=== PATIENT | male | born 1950 | race Caucasian/White ===

== ENCOUNTER 2022-09-23 19:37 | Inpatient (IN) | payer BC, MEDICARE, OTHER ==
[~2022-09-23] VITALS: Ht 177.8 cm; Wt 78.0 kg
--- NOTE | 2022-09-23 19:44 | NUR ---
PATRICIA FROM [facility], 184 SEIZURE 15SECS, ATIVAN 2MG GIVEN. PLACED IN BED, NON VERBAL, UNLABORED BREATHING SATURATING AT 95% WITH O2 4LIT VIA TRACH TUBE.
[2022-09-23] MEDS ORDERED: PIPERACILLIN /TAZOBACTAM 3.375 G VIAL IV ONE (20:18)
--- NOTE | 2022-09-23 20:25 | NUR ---
DISPUTE COORDINATOR AT BEDSIDE
[2022-09-23] MEDS ORDERED: IV NS 0.9% 1,000 ML BAG IV ONE ×2 (20:30→22:30)
[2022-09-23] MEDS ORDERED: PIPERACILLIN /TAZOBACTAM 3.375 G in IV D5W 50 ML IV ONE (20:30)
[2022-09-23] MEDS ORDERED: ACETAMINOPHEN 650 MG/SUPP.RECT RC ONE ×2 (20:30→20:42)
--- NOTE | 2022-09-23 20:33 | NUR ---
URINE SAMPLE SENT TO LAB
[2022-09-23 21:01] LABS: BASOPHILS % (AUTO) 0.1 % (0.0-2.0); HEMATOCRIT 32 % (39-51); HEMOGLOBIN 10.2 g/dL (13.5-17.5); LYMPHOCYTES # (AUTO) 0.3 K/uL (0.8-4.8); LYMPHOCYTES % (AUTO) 1.7 % (20.0-44.0); MEAN CORPUSCULAR HGB CONC 32 g/dl (31.0-36.0); MEAN CORPUSCULAR VOLUME 95 fL (80-96); MONOCYTES # (AUTO) 0.8 K/uL (0.1-1.30); MONOCYTES % (AUTO) 4.8 % (2.0-12.0); NEUTROPHILS # (AUTO) 15.2 K/uL (1.8-8.9); NEUTROPHILS % (AUTO) 93.4 % (43.0-81.0); PLATELET COUNT (AUTO) 218 K/uL (150-450); RED BLOOD CELL COUNT(AUTO) 3.33 MIL/uL (4.5-6.0); WHITE BLOOD COUNT (AUTO) 16.2 K/uL (4.3-11.0)
[2022-09-23 21:20] LABS: CARBON DIOXIDE 24 mmol/L (21-32); CHLORIDE 98 mmol/L (98-107); CREATININE 1.6 mg/dL (0.6-1.3); GLUCOSE 144 mg/dL (74-106); POTASSIUM 3.7 mmol/L (3.5-5.1); SODIUM SERUM 135 mmol/L (136-145); UREA NITROGEN, BLOOD 39 mg/dL (7-18)
[2022-09-23 21:24] LABS: ABG BASE EXCESS -0.3 mmol/L; ABG PCO2 32.4 mmHg (35.0-45.0); ABG PH 7.467 (7.350-7.450); ABG PO2 80.4 mmHg (75.0-100.0); COHb 0.3 % (0.5-1.5); MetHb 0.7 % (0.0-1.5); O2Hb 93.7 % (94.0-97.0); SITE, ABG Right Radial; VENT MODE, BG 4L Trach Mask
[2022-09-23 21:25] LABS: BILIRUBIN,URINE NEGATIVE (NEGATIVE); COLOR,URINE YELLOW (YELLOW); LEUKOCYTE ESTERASE ,URINE NEGATIVE (NEGATIVE); NITRITE, URINE POSITIVE (NEGATIVE); PH,URINE 5.5 (5.0-8.0); PROTEIN,URINE NEGATIVE (NEGATIVE); UGLUCOSE NEGATIVE (NEGATIVE); UROBILINOGEN,URINE 0.2 EU/dL (0.2)
[2022-09-23 21:34] LABS: ALANINE AMINOTRANSFERASE 22 U/L (12-78); ALBUMIN 2.9 g/dL (3.4-5.0); ALKALINE PHOSPHATASE 70 U/L (46-116); ASPARTATE AMINOTRANSFERASE 14 U/L (15-37); BILIRUBIN,DIRECT 0.1 mg/dL (0.0-0.2); BILIRUBIN,TOTAL 0.5 mg/dL (0.2-1.0); TOTAL PROTEIN, SERUM 6.5 g/dL (6.4-8.2)
[2022-09-23 21:48] LABS: BACTERIA,URINE 3+ /HPF (None Seen); RBC,URINE 0-2 /HPF (0-2)
[2022-09-23 21:49] LABS: SQUAMOUS EPITHELIAL CELL,UR 0-2 /HPF (None Seen)
--- NOTE | 2022-09-23 21:57 | NUR ---
COVID Swab collected, sent to lab
--- NOTE | 2022-09-23 21:57 | NUR ---
MRSA Swab collected, sent to lab
--- NOTE | 2022-09-23 22:18 | NUR ---
BED 114-1
[2022-09-23] MEDS ORDERED: Z GUARD REMEDY 4 OZ OINT TP PRN (22:30)
[2022-09-23] MEDS ORDERED: MAGNESIUM HYDROXIDE 30 ML UDC PO PRN (22:30)
[2022-09-23] MEDS ORDERED: ACETAMINOPHEN 325 MG TABLET PO PRN (22:30)
[2022-09-23] MEDS ORDERED: ONDANSETRON HCL/PF 4 MG/2 ML VIAL IVP PRN (22:30)
[2022-09-23] MEDS ORDERED: MAG HYDROX/AL HYDROX/SIMETH 30 ML UDC PO PRN (22:30)
[2022-09-23] MEDS ORDERED: ZOLPIDEM TARTRATE 5 MG TABLET PO PRN (22:30)
[2022-09-23] MEDS ORDERED: LORAZEPAM INJ 2 MG/ML VIAL IV PRN (22:30)
--- NOTE | 2022-09-23 22:34 | NUR ---
Lamberto magallanes in [place] - 09/23/22 at 2251 by CAROLYNE REPORT GIVEN TO JORI QUINTANA ROOM 114-1 FOR KAITLYNN
--- NOTE | 2022-09-23 22:34 | NUR ---
REPORT GIVEN TO ANNEMARIE QUINTANA ROOM 114-1 FOR KAITLYNN
--- NOTE | 2022-09-23 22:50 | NUR ---
PATIENT TRANSFERED AND ADMITTED PER ACLS PROTOCOL
--- NOTE | 2022-09-23 23:00 | NUR ---
RN ADMITTING NOTE REPORT RECEIVED FROM ANH QUINTANA, PATIENT FROM ER VIA GURNEY ACCOMPANIED BY 2 ER STAFF, AAO X 0, AROUSABLE, RESPONDS TO TACTILE STIMULI, ON TRACH TO T-PIECE AT 4LPM, PLACED ON COOL AEROSOL AT 5LPM AT 28% FIO2 BY RT PER ORDERS, SATURATION AT 96%, ST ON THE MONITOR, HR IS 103. IV LINE AT L FOOT 20G PATENT AND FLUSHING WELL, STARTED IV FLUID OF NS AT 150 ML/HR PER ORDERS. HOLLOWAY CATHETER DRAINING TO A CLEAR, YELLOW OUTPUT. GTUBE IN PLACE, POSITIVE PLACEMENT NOTED. SAFETY MEASURES IMPLEMENTED, BED IS LOCKED AND AT LOWEST POSITION, HOB ELEVATED. WILL CONT TO MONITOR AND CARRY OUT MD ORDERS.
--- NOTE | 2022-09-23 23:01 | NUR ---
RN NOTE COMPREHENSIVE ASSESSMENT DONE, NO SKIN ISSUES NOTED.
--- NOTE | 2022-09-23 23:14 | NUR ---
PLACED PT ON CA 28% 5L SUCTIONED SMALL AMOUNT OF YELLOW THICK SECRETIONS.
[2022-09-24] VITALS: BP 91/47
[2022-09-24] MEDS ORDERED: LEVETIRACETAM (500MG) 1,000 MG in IV NS 0.9% 100 ML IV ONE (00:23)
[2022-09-24] MEDS ORDERED: VANCOMYCIN 1 GM in IV D5W 250ml IV ONE (00:30)
[2022-09-24] MEDS ORDERED: LEVETIRACETAM (500MG) 500 MG/5 ML VIAL IV ONE (00:45)
[2022-09-24] MEDS ORDERED: VANCOMYCIN 1 GM VIAL ONE (00:45)
[2022-09-24] MEDS: IV NS 0.9% 1,000 ML IV PRN ×3 (00:53→16:55)
[2022-09-24] MEDS ORDERED: NEPRO 1,000 ML BOTTLE GT PRN (02:30)
[2022-09-24] MEDS ORDERED: HYDR25TA4 GT (03:25)
[2022-09-24] MEDS ORDERED: AMLO-212 GT (03:25)
[2022-09-24] MEDS ORDERED: ATOR20TA GT (03:25)
[2022-09-24] MEDS ORDERED: APIX5TAB GT (03:25)
[2022-09-24] MEDS ORDERED: ACET-2605 GT (03:25)
[2022-09-24] MEDS ORDERED: DEXT15DR6 EACHEYE (03:25)
[2022-09-24] MEDS ORDERED: ASPI-1169 GT (03:25)
[2022-09-24] MEDS ORDERED: MAGN400O21 GT (03:25)
[2022-09-24] MEDS ORDERED: ACET325T53 GT (03:25)
[2022-09-24] MEDS ORDERED: FAMO20TA8 GT (03:25)
[2022-09-24] MEDS ORDERED: HYDR100T27 GT (03:25)
[2022-09-24] MEDS ORDERED: FINA5TAB11 GT (03:25)
[2022-09-24] MEDS ORDERED: TERA2CAP4 GT (03:25)
[2022-09-24] MEDS ORDERED: AMIO200T5 GT (03:25)
[2022-09-24] MEDS ORDERED: ACET325C7 GT (03:25)
[2022-09-24] MEDS ORDERED: CLON0.1T GT (03:25)
[2022-09-24] MEDS ORDERED: CHLO473M3 MM (03:25)
[2022-09-24] MEDS ORDERED: HYDR-4303 GT (03:25)
[2022-09-24] MEDS ORDERED: IPRA4AER IH ×2 (03:25→10:41)
[2022-09-24] MEDS ORDERED: CARV3.122 GT (03:25)
[2022-09-24] MEDS ORDERED: BACL10TA GT (03:25)
[2022-09-24] MEDS ORDERED: SENN-261 GT (03:25)
[2022-09-24 04:00] VITALS: BP 93/40
[2022-09-24] MEDS ORDERED: PIPERACILLIN /TAZOBACTAM 3.375 G VIAL IV ONE (04:12)
[2022-09-24] MEDS ORDERED: ZOSYN IVPB 3.375 G in IV D5W 50ml IV ONE (05:00)
[2022-09-24] MEDS ORDERED: JEVITY 1.2 CAL 1,000 ML BOTTLE GT PRN (05:00)
[2022-09-24 07:21] LABS: BASOPHILS % (AUTO) 0.2 % (0.0-2.0); HEMATOCRIT 27 % (39-51); HEMOGLOBIN 8.8 g/dL (13.5-17.5); LYMPHOCYTES # (AUTO) 0.4 K/uL (0.8-4.8); LYMPHOCYTES % (AUTO) 3.5 % (20.0-44.0); MEAN CORPUSCULAR HGB CONC 33 g/dl (31.0-36.0); MEAN CORPUSCULAR VOLUME 95 fL (80-96); MONOCYTES # (AUTO) 0.7 K/uL (0.1-1.30); MONOCYTES % (AUTO) 5.4 % (2.0-12.0); NEUTROPHILS # (AUTO) 11.6 K/uL (1.8-8.9); NEUTROPHILS % (AUTO) 90.9 % (43.0-81.0); PLATELET COUNT (AUTO) 177 K/uL (150-450); RED BLOOD CELL COUNT(AUTO) 2.84 MIL/uL (4.5-6.0); WHITE BLOOD COUNT (AUTO) 12.8 K/uL (4.3-11.0)
--- NOTE | 2022-09-24 07:22 | NUR ---
CLIENT DIRECTOR OPENING NOTES PATIENT RECEIVED IN BED ASLEEP. ALERT AND ORIENTED X0 BUT AROUSABLE TO TACTILE STIMULI. ON TRACH TO T-PIECCE AND PLACED ON COOL AEROSOL AT 5LPM AT 28%. ON TELE MONITOR. IV ACCESS AT L FOOT 20G PATENT AND FLUSHING WELL AND L HAND 20G RUNNING NS 150 ML/HR. HOLLOWAY CATHETER DRAINING TO A CLEAR, YELLOW OUTPUT. GTUBE IN PLACE WITH NO RESIDUAL. SAFETY MEASURES IMPLEMENTED WITH BED IN LOWEST AND LOCKED POSITION, HOB ELEVATED, SIDE RAILS UP X 3. WILL CONTINUE TO MONITOR.
[2022-09-24 07:38] LABS: CALCIUM, SERUM 8.3 mg/dL (8.5-10.1); CREATININE 1.3 mg/dL (0.6-1.3); MAGNESIUM 1.8 mg/dL (1.8-2.4); PHOSPHORUS 3.3 mg/dL (2.5-4.9); POTASSIUM 3.1 mmol/L (3.5-5.1)
[2022-09-24] MEDS ORDERED: ZOLPIDEM TARTRATE 5 MG TABLET GT PRN (07:52)
[2022-09-24] MEDS ORDERED: MAGNESIUM HYDROXIDE 30 ML UDC GT PRN (07:52)
[2022-09-24 08:00] VITALS: BP 103/43
[2022-09-24] MEDS: LEVETIRACETAM (500MG) 500 MG in IV NS 0.9% 100 ML IV SCH ×2 (08:25→20:30)
[2022-09-24] MEDS: APIXABAN 2.5 MG TABLET PO SCH ×2 (08:26→20:31)
--- NOTE | 2022-09-24 09:06 | NUR ---
GASTRIC RESIDUAL OF 60 CC. WILL CONTINUE FEEDING AT 20 ML/HR.
--- NOTE | 2022-09-24 09:14 | NUR ---
TROPONIN OF [address]. NOTIFIED DR CAICEDO.
[2022-09-24] MEDS: POTASSIUM CHLORIDE 20 MEQ POWDER PACKET PO ONE ×2 (10:27→11:08)
[2022-09-24] MEDS ORDERED: BISA10SU11 RC (10:41)
[2022-09-24] MEDS ORDERED: POLY15DR40 EACHEYE (10:41)
[2022-09-24] MEDS ORDERED: INSU100V28 SQ (10:41)
[2022-09-24] MEDS ORDERED: NUT.237L67 GT (10:41)
[2022-09-24] MEDS ORDERED: VIT1TABL44 GT (10:41)
[2022-09-24] MEDS ORDERED: NA P133E RC (10:41)
[2022-09-24] MEDS ORDERED: FERR300L GT (10:41)
[2022-09-24] MEDS: PIPERACILLIN /TAZOBACTAM 3.375 G in IV D5W 50 ML IV SCH ×2 (11:08→17:04)
[2022-09-24 12:00] VITALS: BP 116/62
[2022-09-24] MEDS: VANCOMYCIN HCL 0.75 GM in IV D5W 250 ML IV SCH (12:01)
--- NOTE | 2022-09-24 13:00 | NUR ---
RESIDUAL OF 20CC. JEVITY INCREASED TO 30 ML/HR. Addendum: 09/24/22 at 1715 by ARSLAN HARTMANN RN PLEASE DISREGARD
[2022-09-24] MEDS ORDERED: DEXTROSE 50%-WATER 50 ML DISP.SYRIN IV PRN (14:30)
--- NOTE | 2022-09-24 15:00 | NUR ---
RESIDUAL OF 20CC. JEVITY INCREASED TO 30 ML/HR.
[2022-09-24 16:00] VITALS: BP 99/49
[2022-09-24] MEDS: BLOOD SUGAR DIAGNOSTIC 1 EACH STRIP IN SCH (17:12)
[2022-09-24] MEDS: INSULIN REGULAR, HUMAN 100 UNIT/ML 3 ML VIAL SQ PRN (17:13)
--- NOTE | 2022-09-24 18:46 | NUR ---
PHYSICIAN INTENSIVIST CLOSING NOTES PATIENT IN BED SLEEPING. AROUSABLE TO VERBAL STIMULI. ALERT AND ORIENTED X2-3. ON TRACH TO T-PIECCE AND PLACED ON COOL AEROSOL AT 5LPM AT 28%. ON TELE MONITOR READING SINUS RHYTHM 60 WITH BUNDLE BRANCH BLOCK AND 1ST DEGREE AV BLOCK. IV ACCESS AT L FOOT 20G PATENT AND FLUSHING WELL WELL ON L HAND 20G RUNNING NS 150 ML/HR. HOLLOWAY CATHETER DRAINING CLEAR, YELLOW URINE. GTUBE IN PLACE WITH NO RESIDUAL. SAFETY MEASURES IMPLEMENTED WITH BED IN LOWEST AND LOCKED POSITION, HOB ELEVATED, SIDE RAILS UP X 3. WILL CONTINUE TO MONITOR.
--- NOTE | 2022-09-24 18:53 | NUR ---
SENIOR SHIPPING CLERK CLOSING NOTES PATIENT IN BED SLEEPING. AROUSABLE TO VERBAL STIMULI. ALERT AND ORIENTED X2-3. ON TRACH TO T-PIECCE AND PLACED ON COOL AEROSOL AT 5LPM AT 28%. ON TELE MONITOR READING SINUS RHYTHM 60 WITH BUNDLE BRANCH BLOCK AND 1ST DEGREE AV BLOCK. IV ACCESS AT L FOOT 20G PATENT AND FLUSHING WELL WELL ON L HAND 20G RUNNING NS 150 ML/HR. HOLLOWAY CATHETER DRAINING CLEAR, YELLOW URINE. GTUBE IN PLACE RUNNING JEVITY 1.2 ML/HR. SAFETY MEASURES IMPLEMENTED WITH BED IN LOWEST AND LOCKED POSITION, HOB ELEVATED, SIDE RAILS UP X 3. WILL ENDORSE TO ONCOMING NURSE FOR KAITLYNN.
--- NOTE | 2022-09-24 19:15 | NUR ---
RN NOTE REPORT RECEIVED FROM ARSLAN QUINTANA,PATIENT IN BED, AO X 3-4, SATURATION AT 100% ON TRACH TO T-PIECE/COOL AEROSOL AT 5LPM/28% FIO2, SB WITH 1ST DEGREE AV BLOCK ON THE MONITOR, HR IS 59. IV LINE AT L HAND 20G AND L FOOT 20G PATENT AND FLUSHING WELL, IV FLUID OF NS INFUSING AT 150 ML/HR. HOLLOWAY CATHETER DRAINING TO A CLEAR, YELLOW OUTPUT. GTUBE IN PLACE, POSITIVE PLACEMENT NOTED WITH TUBE FEEDING OF JEVITY 1.2 AT 30 ML/HR WITH GOAL OF 50 ML/HR. SAFETY MEASURES IMPLEMENTED, BED IS LOCKED AND AT LOWEST POSITION, HOB ELEVATED. WILL CONT TO MONITOR AND CARRY OUT MD ORDERS.
[2022-09-24 20:00] VITALS: BP 113/60
[2022-09-25] VITALS: BP 112/51
[2022-09-25] MEDS: PIPERACILLIN /TAZOBACTAM 3.375 G in IV D5W 50 ML IV SCH ×4 (00:17→17:02)
[2022-09-25] MEDS: BLOOD SUGAR DIAGNOSTIC 1 EACH STRIP IN SCH ×4 (00:20→17:05)
[2022-09-25] MEDS: IV NS 0.9% 1,000 ML IV PRN ×5 (00:21→23:57)
--- NOTE | 2022-09-25 01:00 | NUR ---
RN NOTE REPORT GIVEN TO SRIRAM QUINTANA FOR CONTINUATION OF CARE. PT IN BED, VS ARE WNL.
--- NOTE | 2022-09-25 01:05 | NUR ---
RN opening notes Received Pt from LILIAN Osei. Pt is resting in bed comfortably. Pt is alert and orientedX2 and able to make needs known. . On cool aerosol 5 LPM fio2 28%. No SOB. no S/S of distress noted. Tele monitor showed SR with first degree av block and BBB hr at 65. IV site at L hand # 20 is clean, intact and infusing well abx. IV site at L foot # 20 is clean, intact and flushes well. burk cath is inplaced and draining yellow urine. Gtube is running @ 50 ml/hr with 0 residual. Pt tolerated well. safety precautions is maintained. Bed at low position, brakes locked, side rails up, HOB elevated, bed alarm is on, call light is within reach. will continue to monitor.
[2022-09-25] MEDS: VANCOMYCIN HCL 0.75 GM in IV D5W 250 ML IV SCH (01:52)
[2022-09-25 04:00] VITALS: BP 118/88
[2022-09-25] MEDS: INSULIN REGULAR, HUMAN 100 UNIT/ML 3 ML VIAL SQ PRN ×3 (05:14→17:06)
--- NOTE | 2022-09-25 06:40 | NUR ---
RN closing notes Pt is resting in bed comfortably. Pt is alert and orientedX2 and able to make needs known. . On cool aerosol 5 LPM fio2 28%. No SOB. no S/S of distress noted. Tele monitor showed S.ashlie hr at 52. IV site at L hand # 20 is clean, intact and infusing well NS@ 150 ml/hr. IV site at L foot # 20 is clean, intact and flushes well. burk cath is inplaced and draining yellow urine. Gtube is running @ 50 ml/hr with 0 residual. Pt tolerated well. Kept Pt clean, dry and comfortbale. Safety precautions is maintained. Bed at low position, brakes locked, side rails up, HOB elevated, bed alarm is on, call light is within reach. Will endorse to am nurse for KAITLYNN.
[2022-09-25 06:54] LABS: BASOPHILS % (AUTO) 0.3 % (0.0-2.0); EOSINOPHILS % (AUTO) 2.7 % (0.0-6.0); HEMATOCRIT 28 % (39-51); LYMPHOCYTES # (AUTO) 0.6 K/uL (0.8-4.8); LYMPHOCYTES % (AUTO) 9.1 % (20.0-44.0); MEAN CORPUSCULAR HGB CONC 33 g/dl (31.0-36.0); MEAN CORPUSCULAR VOLUME 96 fL (80-96); MONOCYTES # (AUTO) 0.9 K/uL (0.1-1.30); MONOCYTES % (AUTO) 13.3 % (2.0-12.0); NEUTROPHILS % (AUTO) 74.6 % (43.0-81.0); PLATELET COUNT (AUTO) 137 K/uL (150-450); RED BLOOD CELL COUNT(AUTO) 2.87 MIL/uL (4.5-6.0); WHITE BLOOD COUNT (AUTO) 6.7 K/uL (4.3-11.0)
[2022-09-25 07:13] LABS: CALCIUM, SERUM 7.8 mg/dL (8.5-10.1); CREATININE 1.1 mg/dL (0.6-1.3); POTASSIUM 3.2 mmol/L (3.5-5.1)
--- NOTE | 2022-09-25 07:35 | NUR ---
SAP ADMINISTRATOR OPENING NOTES PATIENT RECEIVED IN BED RESTING COMFORTABLY. ON COOL AEROSOL 5L FIO2 28%. BREATHING EVEN AND UNLABORED WITH NO S/S OF SOB OR RESPIRATORY DISTRESS. ON TELE MONITOR. IV SITE L HAND 20G, INTACT AND PATENT RUNNING NS @ 150 ML/HR. IV SITE ON L FOOT 20G INTACT AND PATENT. HOLLOWAY CATH IN PLACT DRAINING YELLOW URINE. GTBUE RUNNINT AT 45 ML/HR WITH NO RESIDUAL. SAFETY PRECAUTIONS IN PLACE WITH BED IN LOWEST LOCKED POSITION, SIDE RAILS UP, HOB ELEVATED, BED ALARM ON AND CALL LIGHT WITHIN REACH. WILL CONTINUE TO MONITOR.
[2022-09-25 08:00] VITALS: BP 114/45
[2022-09-25] MEDS ORDERED: APIXABAN 2.5 MG TABLET GT SCH (08:19)
[2022-09-25] MEDS ORDERED: CLONIDINE HCL 0.1 MG TABLET GT PRN (08:30)
[2022-09-25] MEDS ORDERED: ACETAMINOPHEN 325 MG TABLET PO PRN (08:30)
[2022-09-25] MEDS ORDERED: BISACODYL SUPP (10 MG) 10 MG/SUPP.RECT SUPP.RECT RC PRN (08:30)
[2022-09-25] MEDS ORDERED: ACETAMINOPHEN ES 500 MG TABLET GT PRN (08:30)
[2022-09-25] MEDS ORDERED: Medication Not On Formulary EA (Ipratropium/Albuterol Sulfate (Combivent Respimat 20-100 IH PRN (08:30)
[2022-09-25] MEDS ORDERED: NEPRO 1,000 ML BOTTLE GT PRN (08:30)
[2022-09-25] MEDS ORDERED: ALBUTEROL FS 2.5 MG/3 ML VIAL.NEB NEB PRN (09:00)
[2022-09-25] MEDS: CARVEDILOL 3.125 MG TABLET GT SCH ×2 (09:00→17:00)
[2022-09-25] MEDS: AMLODIPINE BESYLATE 5 MG TABLET GT SCH ×4 (09:00→10:43)
[2022-09-25] MEDS: AMIODARONE HCL 200 MG TABLET GT SCH ×2 (09:00→10:44)
[2022-09-25] MEDS ORDERED: POLYVINYL ALCOHOL 15 ML BOTTLE EACHEYE PRN (09:00)
[2022-09-25] MEDS ORDERED: IPRATROPIUM NEB FS 0.5 MG/2.5 ML AMPUL.NEB NEB PRN (09:00)
[2022-09-25] MEDS: HYDROCHLOROTHIAZIDE 25 MG TABLET GT SCH (09:25)
[2022-09-25] MEDS: FINASTERIDE (5 MG) 5 MG TABLET GT SCH (09:28)
[2022-09-25] MEDS: POTASSIUM CHLORIDE 20 MEQ TAB.PRT.SR PO SCH (09:28)
[2022-09-25] MEDS: ASPIRIN 81 MG TAB.CHEW GT SCH (09:28)
[2022-09-25] MEDS: APIXABAN 5 MG TABLET GT SCH ×2 (09:34→22:15)
[2022-09-25] MEDS: CHLORHEXIDINE GLUCONATE 15 ML UDC MM SCH ×2 (09:40→17:04)
[2022-09-25] MEDS: LEVETIRACETAM (500MG) 500 MG in IV NS 0.9% 100 ML IV SCH (09:40)
[2022-09-25] MEDS: FERROUS SULFATE UDC 300 MG/5 ML UDC GT SCH ×3 (09:40→17:04)
[2022-09-25 12:00] VITALS: BP 126/47
[2022-09-25] MEDS ORDERED: Medication Not On Formulary EA (Ipratropium/Albuterol Sulfate (Combivent Respimat 20-100 IH SCH (12:00)
[2022-09-25] MEDS: BACLOFEN (10 MG) 10 MG TABLET GT SCH ×2 (12:51→21:00)
[2022-09-25] MEDS ORDERED: hydrALAZINE HCL 50 MG TABLET GT PRN (13:00)
[2022-09-25] MEDS: VANCOMYCIN 1 GM in IV D5W 250ml IV SCH (13:01)
[2022-09-25] MEDS: IPRATROPIUM NEB FS 0.5 MG/2.5 ML AMPUL.NEB NEB SCH ×2 (13:30→19:52)
[2022-09-25] MEDS: ALBUTEROL FS 2.5 MG/0.5 ML VIAL.NEB NEB SCH ×2 (13:30→19:52)
[2022-09-25 16:20] VITALS: BP 125/54
[2022-09-25] MEDS: NEPRO 1,000 ML BOTTLE GT SCH (17:41)
--- NOTE | 2022-09-25 18:54 | NUR ---
FOUNTAIN PEN NIBS INSPECTOR CLOSING NOTES PATIENT IN BED RESTING COMFORTABLY. ON COOL AEROSOL 5L FIO2 28%. BREATHING EVEN AND UNLABORED WITH NO S/S OF SOB OR RESPIRATORY DISTRESS. ON TELE MONITOR READING SB 51 2ND DEGREE AV BLOCK. IV SITE L HAND 20G, INTACT AND PATENT RUNNING NS @ 150 ML/HR. IV SITE ON L FOOT 20G INTACT AND PATENT. HOLLOWAY CATH IN PLACE DRAINING YELLOW URINE. GTBUE RUNNING NEPRO AT 20 ML/HR. ALL DUE MEDS GIVEN AND PATIENT KEPT CLEAN AND COMFORTABLE. SAFETY PRECAUTIONS IN PLACE WITH BED IN LOWEST LOCKED POSITION, SIDE RAILS UP, HOB ELEVATED, BED ALARM ON AND CALL LIGHT WITHIN REACH. WILL ENDORSE TO ONCOMING SHIFT FOR KAITLYNN. Addendum: 09/25/22 at 1931 by ARSLAN HARTMANN RN PATIENT ALERT AND ORIENTED X2-3.
--- NOTE | 2022-09-25 19:30 | NUR ---
pT. VERBALLY ENDORSED BY DAY RN. COMPLETEINITAL ASSESSMENT RENDERED. SEE NURSING NOTES FOR DETAILS. MONITORED FOR ACUTE DISTRESS, PAIN, AND CHANGE IN CLINICAL STATUS. PT. IS CURRENTLY AWAKE, MAKING NEEDS KNOWN. NO REQUESTS OR CONCERNS AT THIS TIME. APPEARS COMFORTABLE.
[2022-09-25 20:00] VITALS: BP 129/58
[2022-09-25] MEDS: LEVETIRACETAM SOL (5 ML) 100 MG/ML UDC GT SCH (22:14)
[2022-09-25] MEDS: TERAZOSIN HCL 5 MG CAPSULE GT SCH (22:16)
[2022-09-25] MEDS: FAMOTIDINE (20 MG) 20 MG TABLET GT SCH (22:17)
[2022-09-25] MEDS: ATORVASTATIN 10 MG TABLET GT SCH (22:18)
[2022-09-26] VITALS: BP 105/51
[2022-09-26] MEDS: BLOOD SUGAR DIAGNOSTIC 1 EACH STRIP IN SCH ×4 (00:30→17:05)
--- NOTE | 2022-09-26 01:00 | NUR ---
Complete bedbath given. Mepilex replaced to sacrum. small patch of redness noted to sacralcoccyx area. Skincare and repositioned side to side. Tolerated well. Larged dark non formed stool obtained.
[2022-09-26] MEDS: ALBUTEROL FS 2.5 MG/0.5 ML VIAL.NEB NEB SCH ×4 (01:55→20:14)
[2022-09-26] MEDS: IPRATROPIUM NEB FS 0.5 MG/2.5 ML AMPUL.NEB NEB SCH ×4 (01:55→20:14)
[2022-09-26 04:00] VITALS: BP 118/63
[2022-09-26] MEDS: VANCOMYCIN 1 GM in IV D5W 250ml IV SCH ×2 (05:18→12:40)
[2022-09-26] MEDS: PIPERACILLIN /TAZOBACTAM 3.375 G in IV D5W 50 ML IV SCH ×5 (05:18→23:50)
[2022-09-26] MEDS: BACLOFEN (10 MG) 10 MG TABLET GT SCH ×3 (05:20→21:11)
--- NOTE | 2022-09-26 07:05 | NUR ---
INSIDE WIREMAN OPENING NOTES Received pt awake in bed AOX3. No complaints of pain or discomfort at this time. Pt is currently on Cool Aerosol 5L and tolerating it well. IV access on left hand 20G and left foot 20Gp patent and intact running IVF as prescribed NS @150cc/hr. Call light within reach. Will continue to monitor.
[2022-09-26 07:10] LABS: BASOPHILS % (AUTO) 0.4 % (0.0-2.0); HEMATOCRIT 25 % (39-51); HEMOGLOBIN 8.4 g/dL (13.5-17.5); LYMPHOCYTES # (AUTO) 1.1 K/uL (0.8-4.8); LYMPHOCYTES % (AUTO) 16.6 % (20.0-44.0); MEAN CORPUSCULAR HGB CONC 33 g/dl (31.0-36.0); MEAN CORPUSCULAR VOLUME 96 fL (80-96); MONOCYTES # (AUTO) 0.9 K/uL (0.1-1.30); PLATELET COUNT (AUTO) 167 K/uL (150-450); RED BLOOD CELL COUNT(AUTO) 2.65 MIL/uL (4.5-6.0); WHITE BLOOD COUNT (AUTO) 6.5 K/uL (4.3-11.0)
[2022-09-26 07:44] LABS: BILIRUBIN,TOTAL 0.2 mg/dL (0.2-1.0); CALCIUM, SERUM 8.1 mg/dL (8.5-10.1); CREATININE 0.9 mg/dL (0.6-1.3); POTASSIUM 3.3 mmol/L (3.5-5.1)
[2022-09-26 08:00] VITALS: BP 115/52
[2022-09-26] MEDS: AMIODARONE HCL 200 MG TABLET GT SCH (08:20)
[2022-09-26] MEDS: CARVEDILOL 3.125 MG TABLET GT SCH ×2 (08:20→16:29)
[2022-09-26] MEDS: POTASSIUM CHLORIDE 20 MEQ TAB.PRT.SR PO SCH (08:25)
[2022-09-26] MEDS: FERROUS SULFATE UDC 300 MG/5 ML UDC GT SCH ×3 (08:25→17:17)
[2022-09-26] MEDS: LEVETIRACETAM SOL (5 ML) 100 MG/ML UDC GT SCH ×2 (08:25→21:10)
[2022-09-26] MEDS: CHLORHEXIDINE GLUCONATE 15 ML UDC MM SCH ×2 (08:25→17:17)
[2022-09-26] MEDS: ASPIRIN 81 MG TAB.CHEW GT SCH (08:26)
[2022-09-26] MEDS: AMLODIPINE BESYLATE 5 MG TABLET GT SCH (08:26)
[2022-09-26] MEDS: FINASTERIDE (5 MG) 5 MG TABLET GT SCH (08:27)
[2022-09-26] MEDS: APIXABAN 5 MG TABLET GT SCH ×2 (08:29→21:10)
[2022-09-26] MEDS: HYDROCHLOROTHIAZIDE 25 MG TABLET GT SCH (08:46)
[2022-09-26] MEDS: IV NS 0.9% 1,000 ML IV PRN ×2 (10:23→22:58)
[2022-09-26 12:00] VITALS: BP 105/43
[2022-09-26 16:00] VITALS: BP 123/49
--- NOTE | 2022-09-26 18:28 | NUR ---
CLERICAL TRANSCRIBER CLOSING NOTES All due medsand tx given as ordered. Pt tolerated everything well. All needs attended to. Call light within reach. Will endorse to oncoming nurse.
[2022-09-26 20:00] VITALS: BP 129/63
--- NOTE | 2022-09-26 20:00 | NUR ---
BRIMMER BLOCKER NOTE PT IN BED AWAKE. A/O X 3. NO SOB, NO DISTRESS OR DISCOMFORT NOTED. DENIES PAIN. T PIECE IN PLACE O2 5L FIO2 28%. ON TELE A FIB CONTROLLED HR 97. LT UPPER AND LOWER EXT'S CONTRACTED GT FEEDING INFUSING JEVITY AT 45 ML/HR. 0 ML RESIDUAL NOTED. HOB ELEVATED. LT #20 G IV SITE GETTING NS @ 75 ML/HR, NO S/S OF INFILTRATION NOTED. SL LT #20 G INTACT AND PATENT. F/C INTACT AND PATENT DRAINING YELLOWISH COLOR URINE. ALL NEEDS ATTENDED. KEPT HIM DRY AND CLEAN.SIDE RAILS UP X 3 AND CALL LIGHT WITHIN REACH. VSS. CONTINUE TO MONITOR HIM.
[2022-09-26] MEDS: ATORVASTATIN 10 MG TABLET GT SCH (21:10)
[2022-09-26] MEDS: FAMOTIDINE (20 MG) 20 MG TABLET GT SCH (21:11)
[2022-09-26] MEDS: TERAZOSIN HCL 5 MG CAPSULE GT SCH (21:11)
[2022-09-26] MEDS: NEPRO 1,000 ML BOTTLE GT SCH (23:01)
[2022-09-27] VITALS: BP 111/58
[2022-09-27] MEDS: BLOOD SUGAR DIAGNOSTIC 1 EACH STRIP IN SCH ×4 (00:30→17:00)
[2022-09-27] MEDS: VANCOMYCIN 1 GM in IV D5W 250ml IV SCH (01:00)
[2022-09-27] MEDS: ALBUTEROL FS 2.5 MG/0.5 ML VIAL.NEB NEB SCH ×4 (01:51→19:58)
[2022-09-27] MEDS: IPRATROPIUM NEB FS 0.5 MG/2.5 ML AMPUL.NEB NEB SCH ×4 (01:51→19:58)
[2022-09-27 04:00] VITALS: BP 121/84
[2022-09-27] MEDS: PIPERACILLIN /TAZOBACTAM 3.375 G in IV D5W 50 ML IV SCH ×3 (05:03→17:00)
[2022-09-27] MEDS: BACLOFEN (10 MG) 10 MG TABLET GT SCH ×3 (05:03→21:24)
--- NOTE | 2022-09-27 06:26 | NUR ---
ROUTE CARRIER NOTE PT IN BED ASLEEP, AROUSABLE. NO DISTRESS OR DISCOMFORT NOTED. DENIES PAIN. T PIECE IN PLACE. ON TELE A FIB CONTROLLED. HR 50. ON SZ ACTIVITY DURING THE SHIFT. GTF INFUSING WELL. 0 ML RESIDUAL. KEPT HOB ELEVATED. F/C INTACT AND PATENT DRAINING WELL. IVF NS INFUSING AT 75 ML/HR. NO S/S OF INFILTRATION NOTED. KEPT HIM DRY AND CLEAN. REPOSITION HIM Q2H, ALL NEEDS ATTENDED. WILL ENDORSE TO DAY SHIFT NURSE FOR CONTINUE TO CARE.
[2022-09-27 06:57] LABS: BASOPHILS % (AUTO) 0.4 % (0.0-2.0); EOSINOPHILS % (AUTO) 7.5 % (0.0-6.0); HEMATOCRIT 29 % (39-51); HEMOGLOBIN 9.5 g/dL (13.5-17.5); LYMPHOCYTES # (AUTO) 1.1 K/uL (0.8-4.8); LYMPHOCYTES % (AUTO) 15.4 % (20.0-44.0); MEAN CORPUSCULAR HGB CONC 32 g/dl (31.0-36.0); MEAN CORPUSCULAR VOLUME 98 fL (80-96); MONOCYTES # (AUTO) 0.8 K/uL (0.1-1.30); MONOCYTES % (AUTO) 11.4 % (2.0-12.0); NEUTROPHILS # (AUTO) 4.6 K/uL (1.8-8.9); NEUTROPHILS % (AUTO) 65.3 % (43.0-81.0); PLATELET COUNT (AUTO) 194 K/uL (150-450); WHITE BLOOD COUNT (AUTO) 7.1 K/uL (4.3-11.0)
[2022-09-27 07:14] LABS: CALCIUM, SERUM 8.2 mg/dL (8.5-10.1); CREATININE 0.9 mg/dL (0.6-1.3); POTASSIUM 3.6 mmol/L (3.5-5.1)
--- NOTE | 2022-09-27 07:15 | NUR ---
RN OPENING NOTE PT IN BED ASLEEP, AROUSABLE. NO DISTRESS OR DISCOMFORT NOTED. DENIES PAIN. T PIECE IN PLACE. ON TELE A FIB CONTROLLED. GTF IN PLACE, INFUSING WELL. 0 ML RESIDUAL. HOB ELEVATED. F/C INTACT AND PATENT DRAINING WELL. IVF NS INFUSING AT 75 ML/HR. NO S/S OF INFILTRATION NOTED. WILL CONTINUE TO MONITOR.
[2022-09-27 08:00] VITALS: BP 122/39
[2022-09-27] MEDS: AMIODARONE HCL 200 MG TABLET GT SCH (08:40)
[2022-09-27] MEDS: LEVETIRACETAM SOL (5 ML) 100 MG/ML UDC GT SCH ×2 (08:40→21:24)
[2022-09-27] MEDS: CHLORHEXIDINE GLUCONATE 15 ML UDC MM SCH ×2 (08:40→16:34)
[2022-09-27] MEDS: FERROUS SULFATE UDC 300 MG/5 ML UDC GT SCH ×3 (08:40→16:34)
[2022-09-27] MEDS: ASPIRIN 81 MG TAB.CHEW GT SCH (08:41)
[2022-09-27] MEDS: CARVEDILOL 3.125 MG TABLET GT SCH ×2 (08:41→16:34)
[2022-09-27] MEDS: HYDROCHLOROTHIAZIDE 25 MG TABLET GT SCH (08:41)
[2022-09-27] MEDS: AMLODIPINE BESYLATE 5 MG TABLET GT SCH (08:42)
[2022-09-27] MEDS: FINASTERIDE (5 MG) 5 MG TABLET GT SCH (08:42)
[2022-09-27] MEDS: APIXABAN 5 MG TABLET GT SCH ×2 (09:06→21:28)
[2022-09-27 12:00] VITALS: BP 126/48
[2022-09-27] MEDS: VANCOMYCIN HCL 0.75 GM in IV D5W 250 ML IV SCH (12:22)
[2022-09-27 16:00] VITALS: BP 126/48
--- NOTE | 2022-09-27 18:31 | NUR ---
RN CLOSING NOTE PT IN BED ASLEEP, AROUSABLE. NO DISTRESS OR DISCOMFORT NOTED. DENIES PAIN. T PIECE IN PLACE. ON TELE A FIB CONTROLLED. GTF IN PLACE, INFUSING WELL, 0 ML RESIDUAL. HOB ELEVATED. F/C INTACT AND PATENT DRAINING WELL. IVF NS INFUSING AT 75 ML/HR. NO S/S OF INFILTRATION NOTED. ALL MEDICATION ADMINISTERED, ALL NEEDS ATTENDED. WILL CONTINUE TO MONITOR.
[2022-09-27 20:00] VITALS: BP 165/75
--- NOTE | 2022-09-27 20:00 | NUR ---
KITCHEN BATH DESIGNER NOTE PT IN BED WITH EYES CLOSED. AROUSABLE. A/O X 3, NO SOB, NO DISTRESS OR DISCOMFORT NOTED. DENIES PAIN. T PIECE PORTEX 7 INTACT AND PATENT FIO2 28%. ON TELE A FIB CONTROLLED HR 104. IVF NS INFUSING @ 50 ML/HR AT LT HAND #20G NO S/S OF INFILTRATION NOTED. SL LT FOOT #20 G INTACT AND PATENT. NO S/S OF HYPO OR HYPERGLYCEMIA NOTED. GT FEEDING INFUSING AT 45 ML/HR, 0 ML RESIDUAL NOTED. HOB ELEVATED. ALL EXT'S CONTRACTED, KEPT THEM ELEVATED. KEPT HIM DRY AND CLEAN. ALL NEEDS ATTENDED. VSS. CONTINUE TO MONITOR HIM.
[2022-09-27] MEDS: FAMOTIDINE (20 MG) 20 MG TABLET GT SCH (21:24)
[2022-09-27] MEDS: ATORVASTATIN 10 MG TABLET GT SCH (21:25)
[2022-09-27] MEDS: TERAZOSIN HCL 5 MG CAPSULE GT SCH (21:28)
[2022-09-28] VITALS: BP 109/62
[2022-09-28] MEDS: PIPERACILLIN /TAZOBACTAM 3.375 G in IV D5W 50 ML IV SCH ×3 (00:15→10:58)
[2022-09-28] MEDS: IPRATROPIUM NEB FS 0.5 MG/2.5 ML AMPUL.NEB NEB SCH ×4 (01:36→19:58)
[2022-09-28] MEDS: ALBUTEROL FS 2.5 MG/0.5 ML VIAL.NEB NEB SCH ×4 (01:36→19:58)
[2022-09-28] MEDS: BLOOD SUGAR DIAGNOSTIC 1 EACH STRIP IN SCH ×4 (02:30→17:08)
[2022-09-28] MEDS: VANCOMYCIN HCL 0.75 GM in IV D5W 250 ML IV SCH ×2 (02:31→12:01)
[2022-09-28 04:00] VITALS: BP 112/85
[2022-09-28] MEDS: BACLOFEN (10 MG) 10 MG TABLET GT SCH ×3 (05:36→21:16)
[2022-09-28] MEDS: IV NS 0.9% 1,000 ML IV PRN (06:25)
--- NOTE | 2022-09-28 06:28 | NUR ---
UX DEVELOPER DESIGNER NOTE PT IN BED AWAKE. BED BATH GIVEN. NO DISTRESS OR DISCOMFORT NOTED. NO S/S OF PAIN NOTED.NO CHANGE IN CONDITION DURING THE NIGHT. GTF AND IVF INFUSING WELL. ON TELE SR WITH 1ST DEGREE AV BLOCK WITH BBB. SIDE RAILS UP X 3 AND CALL LIGHT WITHIN REACH. WILL ENDORSE TO DAY SHIFT NURSE FOR CONTINUE TO CARE.
[2022-09-28 07:04] LABS: BASOPHILS % (AUTO) 0.2 % (0.0-2.0); EOSINOPHILS % (AUTO) 6.7 % (0.0-6.0); HEMATOCRIT 29 % (39-51); HEMOGLOBIN 9.8 g/dL (13.5-17.5); LYMPHOCYTES # (AUTO) 1.5 K/uL (0.8-4.8); LYMPHOCYTES % (AUTO) 17.5 % (20.0-44.0); MEAN CORPUSCULAR HGB CONC 34 g/dl (31.0-36.0); MEAN CORPUSCULAR VOLUME 95 fL (80-96); MONOCYTES # (AUTO) 0.8 K/uL (0.1-1.30); MONOCYTES % (AUTO) 9.3 % (2.0-12.0); NEUTROPHILS # (AUTO) 5.9 K/uL (1.8-8.9); NEUTROPHILS % (AUTO) 66.3 % (43.0-81.0); PLATELET COUNT (AUTO) 200 K/uL (150-450); RED BLOOD CELL COUNT(AUTO) 3.08 MIL/uL (4.5-6.0); WHITE BLOOD COUNT (AUTO) 8.8 K/uL (4.3-11.0)
[2022-09-28 07:08] LABS: CALCIUM, SERUM 8.5 mg/dL (8.5-10.1); CREATININE 0.9 mg/dL (0.6-1.3); POTASSIUM 3.5 mmol/L (3.5-5.1)
[2022-09-28 08:00] VITALS: BP 142/70
[2022-09-28] MEDS: LEVETIRACETAM SOL (5 ML) 100 MG/ML UDC GT SCH ×2 (08:28→21:14)
[2022-09-28] MEDS: FINASTERIDE (5 MG) 5 MG TABLET GT SCH (08:28)
[2022-09-28] MEDS: FERROUS SULFATE UDC 300 MG/5 ML UDC GT SCH ×3 (08:28→16:05)
[2022-09-28] MEDS: CHLORHEXIDINE GLUCONATE 15 ML UDC MM SCH ×2 (08:28→16:05)
[2022-09-28] MEDS: ASPIRIN 81 MG TAB.CHEW GT SCH (08:29)
[2022-09-28] MEDS: APIXABAN 5 MG TABLET GT SCH ×2 (08:30→21:14)
[2022-09-28] MEDS: AMLODIPINE BESYLATE 5 MG TABLET GT SCH (08:31)
[2022-09-28] MEDS: HYDROCHLOROTHIAZIDE 25 MG TABLET GT SCH (08:35)
[2022-09-28] MEDS: AMIODARONE HCL 200 MG TABLET GT SCH (08:46)
[2022-09-28] MEDS: CARVEDILOL 3.125 MG TABLET GT SCH (08:47)
--- NOTE | 2022-09-28 08:47 | NUR ---
INFORMED DR LI RE: CONJUNCTION HEART RHYTHM, ORDER TO HOLD COREG AND AMOIODARONE, CHARGE NURSE KEIRY IS AWARE.
[2022-09-28 09:40] LABS: THYROID STIMULATING HORMONE 4.711 uIU/mL (0.358-3.74)
[2022-09-28 12:00] VITALS: BP 102/55
[2022-09-28] MEDS ORDERED: GENTAMICIN 400 MG in IV D5W 100 ML IV SCH (14:00)
[2022-09-28 16:00] VITALS: BP 107/58
--- NOTE | 2022-09-28 19:53 | NUR ---
GREENSKEEPER SUPERVISOR OPENING NOTE RECEIVED PT IN BED, AWAKE, A/O X 3 AND VERBALLY RESPONSIVE.BREATHING EVEN AND UNLABORED. ON T PIECE PORTEX 7, FIO2-28% AND PT TOLERATED WELL. IV ACCESS ON LT HAND#20G AND LT FOOT INTACT AND PATENT. NO S/S OF INFILTRATIONS. GT FEEDING WELL TOLERATED WELL. RUNNING NEPRO AT 45 ML/HR. HOLLOWAY CATHETER IN PLACE. DRAINING BY GRAVITY. NO C/O PAIN OR DISCOMFORT. NO ACUTE DISTRESS.ALL SAFETY MEASURES IN PLACE. HOB ELEVATED. ALL EXTREMITIES ARE CONTRACTED. SIDE RAILS UP X3, BED IN LOWEST POSITION AND LOCKED. PLACE CALL LIGHT WITH IN REACH. WILL CONTINUE TO MONITOR
[2022-09-28 20:00] VITALS: BP 151/70
[2022-09-28] MEDS: TERAZOSIN HCL 5 MG CAPSULE GT SCH (21:15)
[2022-09-28] MEDS: FAMOTIDINE (20 MG) 20 MG TABLET GT SCH (21:16)
[2022-09-29] VITALS: BP 139/66
[2022-09-29] MEDS: BLOOD SUGAR DIAGNOSTIC 1 EACH STRIP IN SCH ×5 (00:15→23:18)
[2022-09-29] MEDS: INSULIN REGULAR, HUMAN 100 UNIT/ML 3 ML VIAL SQ PRN ×4 (00:16→18:17)
--- NOTE | 2022-09-29 00:25 | NUR ---
RN NOTES: PT'S BLOOD SUGAR 92. NO COVERAGE NEEDED. NO S/S OF HYPER/HYPOGLYCEMIA. WILL CONTINUE TO MONITOR
[2022-09-29] MEDS: IV NS 0.9% 1,000 ML IV PRN (00:39)
[2022-09-29] MEDS: IPRATROPIUM NEB FS 0.5 MG/2.5 ML AMPUL.NEB NEB SCH ×4 (00:46→19:58)
[2022-09-29] MEDS: ALBUTEROL FS 2.5 MG/0.5 ML VIAL.NEB NEB SCH ×4 (00:46→19:58)
[2022-09-29] MEDS: VANCOMYCIN HCL 0.75 GM in IV D5W 250 ML IV SCH ×2 (01:00→20:27)
--- NOTE | 2022-09-29 01:18 | NUR ---
RN NOTES: PT'S VANCO TROUGH 21. HOLD VANCOMYCIN IV ATB THERAPY. WILL CONTINUE TO MONITOR
[2022-09-29 04:00] VITALS: BP 102/71
[2022-09-29] MEDS: BACLOFEN (10 MG) 10 MG TABLET GT SCH ×3 (05:58→21:15)
[2022-09-29 06:23] LABS: BASOPHILS # (AUTO) 0.1 K/uL (0.0-0.2); BASOPHILS % (AUTO) 0.8 % (0.0-2.0); EOSINOPHILS % (AUTO) 5.7 % (0.0-6.0); HEMATOCRIT 29 % (39-51); HEMOGLOBIN 9.7 g/dL (13.5-17.5); LYMPHOCYTES # (AUTO) 1.8 K/uL (0.8-4.8); LYMPHOCYTES % (AUTO) 19.5 % (20.0-44.0); MEAN CORPUSCULAR HGB CONC 33 g/dl (31.0-36.0); MEAN CORPUSCULAR VOLUME 94 fL (80-96); MONOCYTES # (AUTO) 0.7 K/uL (0.1-1.30); MONOCYTES % (AUTO) 8.2 % (2.0-12.0); NEUTROPHILS # (AUTO) 5.9 K/uL (1.8-8.9); NEUTROPHILS % (AUTO) 65.8 % (43.0-81.0); PLATELET COUNT (AUTO) 219 K/uL (150-450); RED BLOOD CELL COUNT(AUTO) 3.11 MIL/uL (4.5-6.0)
--- NOTE | 2022-09-29 06:49 | NUR ---
WARP WORKER CLOSING NOTES: PT IN BED, AWAKE, A/O X 3 AND VERBALLY RESPONSIVE.BREATHING EVEN AND UNLABORED. ON T PIECE PORTEX 7, FIO2-28% AND PT TOLERATED WELL. O2 SAT 98%. IV ACCESS ON LT HAND#20G AND LT FOOT INTACT AND PATENT. NO S/S OF INFILTRATIONS. GT FEEDING WELL TOLERATED WELL. RUNNING NEPRO AT 45 ML/HR. HOLLOWAY CATHETER IN PLACE. DRAINING BY GRAVITY. NO C/O PAIN OR DISCOMFORT. NO ACUTE DISTRESS. ALL DUE MEDS GIVEN ORDERED. ALL SAFETY MEASURES IN PLACE. HOB ELEVATED. ALL EXTREMITIES ARE CONTRACTED. SIDE RAILS UP X3, BED IN LOWEST POSITION AND LOCKED. PLACE CALL LIGHT WITH IN REACH. WILL ENDORSE TO MORNING SHIFT NURSE.
[2022-09-29 07:06] LABS: ALBUMIN 2.4 g/dL (3.4-5.0); BILIRUBIN,TOTAL 0.3 mg/dL (0.2-1.0); CALCIUM, SERUM 8.7 mg/dL (8.5-10.1); CREATININE 0.9 mg/dL (0.6-1.3); PHOSPHORUS 3.2 mg/dL (2.5-4.9); POTASSIUM 3.5 mmol/L (3.5-5.1); TOTAL PROTEIN, SERUM 5.8 g/dL (6.4-8.2)
--- NOTE | 2022-09-29 07:30 | NUR ---
EQUITIES TRADER OPENING NOTES: PT IN BED ASLEEP. ON T PIECE PORTEX 7, FIO2-28%, COOL AEROSOL 5L. TOLERATING WELL WITH BREATHING EVEN AND UNLABORED AND NO S/S OF SOB OR RESPIRATORY DISTRESS. IV ACCESS ON L HAND#20G AND L FOOT INTACT AND PATENT WITH NO S/S OF INFILTRATIONS. GT FEEDING RUNNING NEPRO AT 45 ML/HR. HOLLOWAY CATHETER IN PLACE DRAINING BY GRAVITY. ALL SAFETY MEASURES IN PLACE WITH HOB ELEVATED, SIDE RAILS UP X3, BED IN LOWEST POSITION AND LOCKED, AND CALL LIGHT WITHIN REACH. WILL CONTINUE TO MONITOR.
[2022-09-29 08:00] VITALS: BP 138/55
[2022-09-29] MEDS: ASPIRIN 81 MG TAB.CHEW GT SCH (09:05)
[2022-09-29] MEDS: FINASTERIDE (5 MG) 5 MG TABLET GT SCH (09:06)
[2022-09-29] MEDS: CHLORHEXIDINE GLUCONATE 15 ML UDC MM SCH ×2 (09:06→18:17)
[2022-09-29] MEDS: AMLODIPINE BESYLATE 5 MG TABLET GT SCH (09:06)
[2022-09-29] MEDS: APIXABAN 5 MG TABLET GT SCH ×2 (09:06→21:18)
[2022-09-29] MEDS: LEVETIRACETAM SOL (5 ML) 100 MG/ML UDC GT SCH ×2 (09:07→21:16)
[2022-09-29] MEDS: NEPRO 1,000 ML BOTTLE GT SCH (09:09)
[2022-09-29 12:00] VITALS: BP 133/53
[2022-09-29] MEDS ORDERED: VANCOMYCIN 500 MG in IV D5W 100ml IV SCH (13:00)
[2022-09-29 13:49] LABS: EOSINOPHILS % (MANUAL) 10 % (0-4); LYMPHOCYTES % (MANUAL) 14 % (16-48); MONOCYTES % (MANUAL) 8 % (0-11.0); MYELOCYTES % 1 % (0-0); NEUTROPHILS % (MANUAL) 67 (42-76)
[2022-09-29 16:00] VITALS: BP 162/58
--- NOTE | 2022-09-29 19:23 | NUR ---
BELT MEASURER CLOSING NOTES: PT IN BED RESTING. ALERT AND ORIENTED X2. CALM, COOPERATIVE, AND VERBALLY RESPONSIVE. ON T PIECE PORTEX 7, FIO2-28%, COOL AEROSOL 5L. TOLERATING WELL WITH BREATHING EVEN AND UNLABORED AND NO S/S OF SOB OR RESPIRATORY DISTRESS. ON TELE MONITOR READING SB. IV ACCESS ON L HAND#20G AND L FOOT INTACT AND PATENT WITH NO S/S OF INFILTRATIONS. GT FEEDING RUNNING NEPRO AT 45 ML/HR. HOLLOWAY CATHETER IN PLACE DRAINING BY GRAVITY. ALL DUE MEDS GIVEN AND PATIENT KEPT CLEAN AND COMFORTABLE. ALL SAFETY MEASURES IN PLACE WITH HOB ELEVATED, SIDE RAILS UP X3, BED IN LOWEST POSITION AND LOCKED, AND CALL LIGHT WITHIN REACH. WILL ENDORSE TO ONCOMING SHIFT FOR KAITLYNN.
--- NOTE | 2022-09-29 19:30 | NUR ---
EXPERIMENTAL MECHANIC ELECTRICAL OPENING NOTE RECEIVED PATIENT FROM AM NURSE; PATIENT IS A/O X 2, ABLE TO MAKE NEEDS KNOWN, VERBALLY RESPONSIVE; STABLE ON 5L COOL AEROSOL VIA T PIECE, TOLERATING WELL AND NO S/S OF DISTRESS NOTED; HOOKED TO TELE MONITORING; WITH IV ACCESS ON LEFT HAND G#20 AND LEFT FOOT G#20; G TUBE IN PLACE RUNNING WITH NEPRO AT 45 ML/HR; HOLLOWAY IN PLACE DRAINING TO YELLOW COLORED URINE; NOTED PATIENT WITH CONTRACTED BILATERAL UPPER EXTREMITIES AND LEFT LOWER EXTREMITY; SAFETY MEASURES IMPLEMENTED, BED LOCKED IN LOWEST POSITION, SIDE RAILS UP X 3, CALL LIGHT WITHIN REACH; HOB ELEVATED; WILL CONTINUE TO MONITOR THROUGHOUT SHIFT
[2022-09-29 20:00] VITALS: BP 144/76
[2022-09-29] MEDS: FAMOTIDINE (20 MG) 20 MG TABLET GT SCH (21:15)
[2022-09-29] MEDS: TERAZOSIN HCL 5 MG CAPSULE GT SCH (21:41)
[2022-09-30] VITALS: BP 138/66
[2022-09-30] MEDS: ALBUTEROL FS 2.5 MG/0.5 ML VIAL.NEB NEB SCH ×3 (01:38→13:44)
[2022-09-30] MEDS: IPRATROPIUM NEB FS 0.5 MG/2.5 ML AMPUL.NEB NEB SCH ×3 (01:38→13:41)
[2022-09-30] MEDS ORDERED: GENTAMICIN 320 MG in IV D5W 100 ML IV SCH (02:00)
[2022-09-30 04:00] VITALS: BP 131/82
[2022-09-30] MEDS: NEPRO 1,000 ML BOTTLE GT SCH (04:14)
[2022-09-30] MEDS: BACLOFEN (10 MG) 10 MG TABLET GT SCH ×2 (04:38→12:22)
[2022-09-30] MEDS: BLOOD SUGAR DIAGNOSTIC 1 EACH STRIP IN SCH ×3 (06:44→17:24)
[2022-09-30 06:49] LABS: BASOPHILS # (AUTO) 0.1 K/uL (0.0-0.2); BASOPHILS % (AUTO) 0.5 % (0.0-2.0); EOSINOPHILS % (AUTO) 4.8 % (0.0-6.0); HEMATOCRIT 30 % (39-51); HEMOGLOBIN 9.6 g/dL (13.5-17.5); LYMPHOCYTES # (AUTO) 2.6 K/uL (0.8-4.8); LYMPHOCYTES % (AUTO) 22.2 % (20.0-44.0); MEAN CORPUSCULAR HGB CONC 32 g/dl (31.0-36.0); MEAN CORPUSCULAR VOLUME 96 fL (80-96); MONOCYTES # (AUTO) 0.8 K/uL (0.1-1.30); MONOCYTES % (AUTO) 6.8 % (2.0-12.0); NEUTROPHILS # (AUTO) 7.6 K/uL (1.8-8.9); NEUTROPHILS % (AUTO) 65.7 % (43.0-81.0); PLATELET COUNT (AUTO) 245 K/uL (150-450); RED BLOOD CELL COUNT(AUTO) 3.13 MIL/uL (4.5-6.0); WHITE BLOOD COUNT (AUTO) 11.6 K/uL (4.3-11.0)
[2022-09-30 07:00] LABS: CALCIUM, SERUM 8.9 mg/dL (8.5-10.1); CREATININE 0.9 mg/dL (0.6-1.3); POTASSIUM 3.7 mmol/L (3.5-5.1)
--- NOTE | 2022-09-30 07:14 | NUR ---
DIET COUNSELOR OPEN NOTES: PT IN BED RESTING. ALERT AND ORIENTED X2. CALM, COOPERATIVE, AND VERBALLY RESPONSIVE. ON T PIECE PORTEX 7, FIO2-28%, COOL AEROSOL 5L. TOLERATING WELL WITH BREATHING EVEN AND UNLABORED AND NO S/S OF SOB OR RESPIRATORY DISTRESS. ON TELE MONITOR READING SB. IV ACCESS ON L HAND#20G AND L FOOT INTACT AND PATENT WITH NO S/S OF INFILTRATIONS. GT FEEDING RUNNING NEPRO AT 45 ML/HR. HOLLOWAY CATHETER IN PLACE DRAINING BY GRAVITY. WILL KEEP PATIENT CLEAN AND COMFORTABLE. ALL SAFETY MEASURES IN PLACE WITH HOB ELEVATED, SIDE RAILS UP X3, BED IN LOWEST POSITION AND LOCKED, AND CALL LIGHT WITHIN REACH. WILL CONTINUE TO MONITOR
--- NOTE | 2022-09-30 07:42 | NUR ---
ATIENT IS A/O X 2, ABLE TO MAKE NEEDS KNOWN, VERBALLY RESPONSIVE; STABLE ON 5L COOL AEROSOL VIA T PIECE, TOLERATING WELL AND NO S/S OF DISTRESS NOTED; HOOKED TO TELE MONITORING; WITH IV ACCESS ON LEFT HAND G#20 AND LEFT FOOT G#20; G TUBE IN PLACE RUNNING WITH NEPRO AT 45 ML/HR; HOLLOWAY IN PLACE DRAINING TO YELLOW COLORED URINE; NO COMPLAINTS OF PAIN AND DISCOMFORT AT THIS TIME; SAFETY MEASURES IMPLEMENTED, BED LOCKED IN LOWEST POSITION, SIDE RAILS UP X 3, CALL LIGHT WITHIN REACH; HOB ELEVATED; ENDORSED TO AM NURSE FOR KAITLYNN.
[2022-09-30 08:00] VITALS: BP 131/82
[2022-09-30] MEDS: CHLORHEXIDINE GLUCONATE 15 ML UDC MM SCH ×2 (08:39→17:09)
[2022-09-30] MEDS: FINASTERIDE (5 MG) 5 MG TABLET GT SCH (08:39)
[2022-09-30] MEDS: AMLODIPINE BESYLATE 5 MG TABLET GT SCH (08:40)
[2022-09-30] MEDS: ASPIRIN 81 MG TAB.CHEW GT SCH (08:40)
[2022-09-30] MEDS: LEVETIRACETAM SOL (5 ML) 100 MG/ML UDC GT SCH (08:40)
[2022-09-30] MEDS: APIXABAN 5 MG TABLET GT SCH (08:42)
[2022-09-30 12:03] VITALS: BP 159/61
[2022-09-30] MEDS: VANCOMYCIN HCL 0.75 GM in IV D5W 250 ML IV SCH (13:13)
[2022-09-30 16:16] VITALS: BP 145/68
--- NOTE | 2022-09-30 18:58 | NUR ---
CLERK TRAVEL RESERVATIONS NOTE PATIENT IS AT [facility] . ORDER RECEIVED TO DISCHARGE POLLY GALLEGOS FROM [facility] . DISCHARGE INSTRUCTIONS PROVIDED VERBALLY AND IN PRINTING TO THE EMT AND LILIAN WHALEY AT THE [facility] OVER THE PHONE .POLLY GALLEGOS DISCHARGED FROM [facility]
== END 2022-09-30 19:58 | DRG 871 ==
LOC: ER 19:43 → TELE1 22:36
PROVIDERS: ADMIT Nurse Practitioner Acute Care
PROC: 5A1935Z Respiratory Ventilation, Less than 24 Consecutive Hours (ICD-10-PCS; principal; 2022-09-27)
DX: A41.89 Other specified sepsis (principal); G93.41 Metabolic encephalopathy; I21.A1 Myocardial infarction type 2; N17.0 Acute kidney failure with tubular necrosis; D68.59 Other primary thrombophilia; J96.10 Chronic respiratory failure, unspecified whether with hypoxia or hypercapnia; N39.0 Urinary tract infection, site not specified; Z16.24 Resistance to multiple antibiotics; E87.20 Acidosis, unspecified; I48.20 Chronic atrial fibrillation, unspecified; E44.0 Moderate protein-calorie malnutrition; E87.1 Hypo-osmolality and hyponatremia; Z20.822 Contact with and (suspected) exposure to COVID-19; Z93.0 Tracheostomy status; Z74.01 Bed confinement status; Z93.1 Gastrostomy status; R13.10 Dysphagia, unspecified; N40.0 Benign prostatic hyperplasia without lower urinary tract symptoms; Z86.73 Personal history of transient ischemic attack (TIA), and cerebral infarction without residual deficits; I50.9 Heart failure, unspecified; I11.0 Hypertensive heart disease with heart failure; Z95.0 Presence of cardiac pacemaker; Z86.79 Personal history of other diseases of the circulatory system; I25.10 Atherosclerotic heart disease of native coronary artery without angina pectoris; E11.9 Type 2 diabetes mellitus without complications; B96.20 Unspecified Escherichia coli [E. coli] as the cause of diseases classified elsewhere; R56.9 Unspecified convulsions; K21.9 Gastro-esophageal reflux disease without esophagitis; E78.5 Hyperlipidemia, unspecified; D63.8 Anemia in other chronic diseases classified elsewhere; E88.09 Other disorders of plasma-protein metabolism, not elsewhere classified; G93.89 Other specified disorders of brain; E87.6 Hypokalemia; G31.84 Mild cognitive impairment of uncertain or unknown etiology; Z79.4 Long term (current) use of insulin; Z79.51 Long term (current) use of inhaled steroids; Z79.899 Other long term (current) drug therapy; I45.10 Unspecified right bundle-branch block
CPT/HCPCS: 31720; 36415; 36600; 70450-TC; 71045-TC; 80048-TC; 80053-TC; 80061-TC; 80076-TC; 80170-TC; 80202-TC; 81001; 82728-TC; 82803-TC; 82962-TC; 83540-TC; 83605-TC; 83735-TC; 84100-TC; 84439-TC; 84443-TC; 84484-TC; 85025-TC; 85730-TC; 86850-TC; 87040-TC; 87081-TC; 87086-TC; 93307-TC; 94640-TC; 94664-TC; 94799-TC; A4223; A6403; G0378; J1580; J1815; J1953; J2543; J3370; J7030; J7050; J7060